=== PATIENT | male | born 1990 | race Caucasian/White ===

== ENCOUNTER 2017-12-13 19:46 | Emergency (ER) | payer BC, OTHER ==
[~2017-12-13] VITALS: Ht 180.3 cm; Wt 77.1 kg
[2017-12-13 22:15] VITALS: BP 99/68
[2017-12-13] MEDS ORDERED: TETANUS-DIPTH-ACEL PERTUSSIS 0.5ML SYRG IM ONE (23:30)
== END 2017-12-13 23:40 | disposition home or self-care (01) ==
LOC: ER 19:46
DX: S61.411A Laceration without foreign body of right hand, initial encounter (principal); W26.9XXA Contact with unspecified sharp object(s), initial encounter; Y93.89 Activity, other specified; Y99.8 Other external cause status; Y92.89 Other specified places as the place of occurrence of the external cause
CPT/HCPCS: 12001; 90471; 90715